=== PATIENT | female | born 1960 | race Caucasian/White ===

== ENCOUNTER 2020-10-02 06:58 | Day surgery (SDC) | payer BC ==
[~2020-10-02 06:58] MED LIST: Lactated Ringers 1,000 ML IV SCH; Lidocaine 1%/Sod Bicarbonate in NS 8.4% 1 ML Syringe IDERM PRN; Sodium Chloride 0.9% 10 ML Syringe FLUSH PRN
--- NOTE | 2020-10-02 07:24 | PCM.PREANE ---
Preanesthetic Assessment - Procedure Proposed Procedure: colonoscopy - Anesthesia/Transfusion/Family Hx Anesthesia History: Prior Anesthesia Without Reaction Family History of Anesthesia Reaction: Other (see below) (sister has "a hard time coming out of it") Intubation History: Unknown - Review of Systems General: No Symptoms Pulmonary: No Symptoms, Other (wears CPAP ) Cardiovascular: Other (CHF pt claims nonsymptomatic ) Gastrointestinal: No Symptoms Neurological: No Symptoms Other: Reports: None - Physical Assessment NPO Status Date: 10/01/20 NPO Status Time: 20:00 Vital Signs: Last Vital Signs Temp 36.6 C 10/02/20 07:00 Pulse 78 10/02/20 07:00 Resp 16 10/02/20 07:00 BP 118/57 L 10/02/20 07:00 Pulse Ox 96 10/02/20 07:00 Height: 1.65 m Weight: 71.668 kg ASA Class: 3 Mental Status: Alert & Oriented x3 Airway Class: Mallampati = 2 Thyro-Mental Finger Breadths: 3 Mouth Opening Finger Breadths: 4 ROM/Head Extension: Full Lungs: Clear to Auscultation, Normal Respiratory Effort Cardiovascular: Regular Rate, Regular Rhythm - Allergies Allergies/Adverse Reactions: Allergies Allergy/AdvReac Type Severity Reaction Status Date / Time No Known Allergies Allergy Verified 07/01/16 16:52 - Blood Blood Available: No - Anesthesia Plan Pre-Op Medication Ordered: None (took AM coreg ) - Acknowledgements Anesthesia Type Planned: MAC Pt an Appropriate Candidate for the Planned Anesthesia: Yes Alternatives and Risks of Anesthesia Discussed w Pt/Guardian: Yes Pt/Guardian Understands and Agrees with Anesthesia Plan: Yes PreAnesthesia Questionnaire HEENT History: Reports: Allergic Rhinitis Cardiovascular History: Reports: Cardiomyopathy, Heart Murmur, Other (See Below) (HTN) [employer] History: Reports: Other (See Below) Other OB/BYN History: ovary removed with cyst - Past Surgical History HEENT Surgical History: Reports: Tonsillectomy GI Surgical History: Reports: Colonoscopy Female Surgical History: Reports: Hysterectomy Musculoskeletal Surgical History: Reports: Other (See Below) Other Musculoskeletal Surgeries/Procedures:: wrist fracture surgery - SUBSTANCE USE Tobacco Use Status *Q: Never Tobacco User Recreational Drug Use History: No - HOME MEDS Home Medications: Home Meds Calcium Carbonate [Calcium] 500 mg PO DAILY 08/27/16 [History] Cholecalciferol (Vitamin D3) [Vitamin D] 5,000 unit PO DAILY 06/06/16 [History] Ferrous Sulfate [Slow Fe] 140 mg PO WITHBREAKFAST 06/06/16 [History] Fexofenadine [Henna] 60 mg PO DAILY 06/06/16 [History] Magnesium 200 mg PO DAILY 06/06/16 [History] [place]-3 Fatty Acids [Fish Oil] 600 mg PO DAILY 06/06/16 [History] traMADol HCl [Ultram] 1 - 2 tab PO Q6H PRN #30 tablet 07/02/16 [Rx] Aspirin 81 mg PO DAILY 10/01/20 [History] carvediloL [Carvedilol] 12.5 mg PO BID 10/01/20 [History] - CURRENT (IN HOUSE) MEDS Current Meds: Current Medications Lactated Ringer's (Ringers, Lactated) 1,000 mls @ 125 mls/hr IV ASDIRECTED STEFAN Stop: 10/02/20 23:00 Lidocaine/Sodium Bicarbonate (Buffered Lidocaine 1% In Ns 8.4%) 0.25 ml IDERM ONETIME PRN PRN Reason: Prior to IV Start Stop: 10/02/20 18:00 Sodium Chloride (Saline Flush) 10 ml FLUSH ASDIRECTED PRN PRN Reason: Keep Vein Open Stop: 10/02/20 18:00
[2020-10-02] MEDS ORDERED: Midazolam 1 MG/ML 2 ML SDV ONE (07:44)
[2020-10-02] MEDS ORDERED: Propofol 200 MG/20 ML SDV ONE ×2 (07:44→07:47)
[2020-10-02] MEDS ORDERED: Lidocaine 1% 4 ML ONE (07:45)
--- NOTE | 2020-10-02 08:36 | PCM.OPNOTE ---
- General Post-Op/Procedure Note Date of Surgery/Procedure: 10/02/20 Operative Procedure(s): colonoscopy Findings: normal colon Pre Op Diagnosis: history of colon polyps Post-Op Diagnosis: same Anesthesia Technique: MAC Primary Surgeon: Evelin Roajs Anesthesia Provider: Lala Snider Pathology: none Fluid Replacement, Intraop: 550 Output, Urine Amount: 0 EBL in mLs: 0 Complications: none apparent Condition: Good
--- NOTE | 2020-10-02 08:41 | PCM48HPAN ---
Post Anesthesia Note - EVALUATION WITHIN 48HRS OF ANESTHETIC Vital Signs in Normal Range: Yes Patient Participated in Evaluation: Yes Respiratory Function Stable: Yes Airway Patent: Yes Cardiovascular Function Stable: Yes Hydration Status Stable: Yes Pain Control Satisfactory: Yes Nausea and Vomiting Control Satisfactory: Yes Mental Status Recovered: Yes Vital Signs: Last Vital Signs Temp 36.6 C 10/02/20 07:00 Pulse 78 10/02/20 07:00 Resp 16 10/02/20 07:00 BP 118/57 L 10/02/20 07:00 Pulse Ox 96 10/02/20 07:00
--- NOTE | 2020-10-02 08:42 | PCM.PRNOTE ---
- Free Text/Narrative Note: Operative Report Date of Surgery/Procedure: October 02, 2020 Operative Procedure: Colonoscopy to cecum Pre Op Diagnosis: history of colon polyps Post-Op Diagnosis: same Surgeon: Evelin Rojas MD Anesthesia Technique: MAC Anesthesia Provider: Lala Snider CRNA IV Fluid Replacement, Intraop: 550cc Output, Urine Amount: 0cc EBL : 0cc Findings: normal colon Specimens: none Indication: The patient is a 59 year-old lady who presented to the outpatient clinic requesting colonoscopy. The patient has a history of tubular adenoma. We discussed the procedure of a screening colonoscopy including the polypectomy and biopsy. Risks of bleeding and perforation were discussed, the patient understoo d and wished to proceed. Written and consent was obtained. Description of the procedure: The patient was brought to the endoscopy suite and placed in the left lateral decubitus position. Appropriate monitors were applied. The patient was given MAC anesthesia. An anorectal examination was performed, revealing anal skin tags. The scope was placed into the rectum and advanced to cecum with no significant difficulty requiring no additional maneuvers. The patients cecum was entered, and the ileocecal valve and appendiceal orifice were identified and normal. At this point, the scope was withdrawn, paying careful attention to the mucosa. The patient had excellent bowel prep, allowing for visualization of 90-95% of the mucosa. In the rectum, the scope was retroflexed and no abnormalities were noted, except for some hemorrhoidal tissue. The scope was placed back in the lumen and the excess air was aspirated. The patient tolerated the procedure well. Complications: none apparent Condition: Good, transported to PACU in stable condition Evelin Rojas MD General Surgery
[2020-10-02 09:00] VITALS: BP 107/57; PULSE 64
== END 2020-10-02 09:19 | disposition home or self-care (01) ==
LOC: JD.SDS 06:58
PROVIDERS: ATTEND Surgery
DX: Z12.11 Encounter for screening for malignant neoplasm of colon (principal); K64.9 Unspecified hemorrhoids; I11.0 Hypertensive heart disease with heart failure; I50.9 Heart failure, unspecified; E78.5 Hyperlipidemia, unspecified; G47.30 Sleep apnea, unspecified; Z88.2 Allergy status to sulfonamides; Z86.010 Personal history of colon polyps; Z88.8 Allergy status to other drugs, medicaments and biological substances; Z98.890 Other specified postprocedural states
CPT/HCPCS: 45378; J2001; J2250; J2704; J7120